=== PATIENT | male | born 1990 | race American Indian/Alaskan Native ===

== ENCOUNTER 2018-11-05 06:13 | Emergency (ER) | payer BC, SELFPAY ==
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
== END 2018-11-05 09:19 | disposition home or self-care (01) ==
LOC: ER 06:13
DX: S13.4XXA Sprain of ligaments of cervical spine, initial encounter (principal); V49.40XA Driver injured in collision with unspecified motor vehicles in traffic accident, initial encounter
CPT/HCPCS: 72040; 72100; 99283